=== PATIENT | female | born 1980 | race Caucasian/White ===

== ENCOUNTER 2020-11-09 21:48 | Emergency (ER) | payer OTHER ==
[~2020-11-09] VITALS: Ht 165.1 cm; Wt 102.0 kg
[2020-11-09] MEDS ORDERED: IBUP800T19 PO (22:01)
[2020-11-09] MEDS ORDERED: THYR60TA PO (22:01)
[2020-11-09] MEDS ORDERED: HYDR-2759 PO (22:02)
--- NOTE | 2020-11-09 22:16 | PHYS DOC ---
Past History Past Medical History: Ovarian Cyst Past Medical History Post operative urinary retention General Adult EDM: Chief Complaint: URINARY RETENTION HPI: HPI: "..I am not able to pee.. this happens every time.. I ve had surgery.. I had ovarian cysts removed.. Patient is a40] year old female who presents with urinary retention after surgery at [facility] today. Pt. had laparoscopic removal of an ovarian cyst today by Dr. Barton. Since her surgery she has not been able to urinate. Patient states any time she has had generalized surgery she has urinary retention. In the past she is gone home with Davis. Patient normally follows with with Dr. Oralia ARECHIGA, and Dr.Yoakam boogie. Davis was placed after arrival in the emergency room with over 1000 cc urine output. Patient plan leg bag and will follow up with primary care. Review of Systems: Review of Systems: Constitutional: Denies fever or chills Eyes: Denies change in visual acuity HENT: Denies nasal congestion or sore throat Respiratory: Denies cough or shortness of breath Cardiovascular: Denies chest pain or edema GI: Complaintsa abdominal pain. Denies, nausea, vomiting, bloody stools or diarrhea : Denies dysuria . Complains of urinary retention Musculoskeletal: Denies back pain or joint pain Integument: Denies rash Neurologic: Denies headache, focal weakness or sensory changes Endocrine: Denies polyuria or polydipsia Lymphatic: Denies swollen glands Psychiatric: Denies depression or anxiety Family History: Family History: Noncontributory to presentation Current Medications: Current Meds: See nursing for home meds Allergies: Allergies: Allergies Coded Allergies Type Severity Reaction Last Updated Verified No Known Drug Allergies 11/09/20 No Physical Exam: PE: Constitutional: Moderate acute distress, non-toxic appearance. [] HENT: Normocephalic, atraumatic, bilateral external ears normal, oropharynx moist, no oral exudates, nose normal. [] Eyes: PERRLA, EOMI, conjunctiva normal, no discharge. Glasses Neck: Normal range of motion, no tenderness, supple, no stridor. [] Cardiovascular:Heart rate regular rhythm, no murmur [] Lungs & Thorax: Bilateral breath sounds clear to auscultation [] Abdomen: Bowel sounds decreased soft, no tenderness, no masses, no pulsatile masses. [Suture lines stable. Old surgery scars. Distended bladder. Skin: Warm, dry, no erythema, no rash. [] Back: No tenderness, no CVA tenderness. [] Extremities: No tenderness, no cyanosis, no clubbing, ROM intact, no edema. [] Neurologic: Alert and oriented X 3, normal motor function, normal sensory function, no focal deficits noted. [] Psychologic: Affect anxious, judgement normal, mood normal. [] EKG: EKG: [] Radiology/Procedures: Radiology/Procedures: [] Heart Score: C/O Chest Pain: N/A Risk Factors: Risk Factors: DM, Current or recent (<one month) smoker, HTN, HLP, family history of CAD, obesity. Risk Scores: Score 0 - 3: 2.5% MACE over next 6 weeks - Discharge Home Score 4 - 6: 20.3% MACE over next 6 weeks - Admit for Clinical Observation Score 7 - 10: 72.7% MACE over next 6 weeks - Early Invasive Strategies Course & Med Decision Making: Course & Med Decision Making Pertinent Labs and Imaging studies reviewed. (See chart for details) Davis placed with return of 1000 cc of urine. Patient to leave Davis in for the next 24 hours. Remove after that time and see if urinary function has returned. Patient return if any concerns. Impression: 1. Urinary Retention 2. Hx. ovarian cyst removal-at [facility] today [] Handy Disclaimer: Handy Disclaimer: This electronic medical record was generated, in whole or in part, using a voice recognition dictation system. BAILEE FRAGOSO MD Nov 09, 2020 22:16
[2020-11-09 22:46] LABS: BACTERIA,URINE 0 /HPF (0-FEW); BILIRUBIN,URINE NEG (NEG); CLARITY,URINE CLEAR; COLOR,URINE COLORLESS; GLUCOSE,URINE NEG (NEG); NITRITE,URINE NEG (NEG); RBC,URINE 0 /HPF (0-2); SQUAMOUS EPITHELIAL CELL,UR MOD /LPF; UROBILINOGEN,URINE 0.2 mg/dL (0.2 mg/dL); WBC,URINE 0 /HPF (0-4)
[2020-11-09 23:00] VITALS: BP 120/64
== END 2020-11-09 23:02 | disposition home or self-care (01) ==
LOC: ER 21:48
DX: N99.89 Other postprocedural complications and disorders of genitourinary system (principal)
CPT/HCPCS: 51702; 81001; 99284

== ENCOUNTER → 2021-01-07 | Outpatient (CLI) | payer OTHER ==
[~2021-01-07] MED LIST: HYDR-2759 PO; IBUP800T19 PO; THYR60TA PO
--- NOTE | 2021-01-07 09:48 | RAD ---
INDICATION : Reason: RUQ PAIN / Spl. Instructions: / History: COMPARISON: None TECHNIQUE: Multiple ultrasound images obtained through the abdomen in grayscale and color. FINDINGS: Liver: Echotexture within normal limits in visualized portions of liver. Gallbladder: No wall thickening or stones. There is pain within the right upper quadrant. IVC: Limited visualization secondary to overlying structures obscuring. Common Bile Duct: Not dilated . Pancreas: No gross abnormality identified in visualized portions of pancreas. Right Kidney: No hydronephrosis. Cortical thinning. IMPRESSION: * No biliary ductal dilation or gallstones. There is some pain to transverse or pressure in the rig ht upper quadrant. Electronically signed by: Tj Bernabe MD (01/07/2021 9:46 AM) [id number]
== END ==
LOC: US 08:06
PROVIDERS: ATTEND Nurse Practitioner Family
DX: R10.11 Right upper quadrant pain (principal)
CPT/HCPCS: 76705

== ENCOUNTER → 2021-04-29 | Emergency (ER) | payer OTHER ==
[~2021-04-29] VITALS: Ht 165.1 cm; Wt 102.0 kg
[~2021-04-29] MED LIST changes: +ACETAMINOPHEN 325 MG TABLET PO ONE; +ASPIRIN 325 MG TABLET PO ONE; +IV NORMAL SALINE 1,000ML 1,000 ML IV ONE; +ONDA4TAB12 PO; +ONDANSETRON PF 4 MG/2 ML VIAL. IVP ONE
--- NOTE | 2021-04-29 09:16 | PHYS DOC ---
Past History Past Medical History: Ovarian Cyst Past Surgical History: Other Additional Past Surgical Histo: ovarian cystectomy this am and has had 2 lithotripsies for kidney stones Alcohol Use: None Adult General HPI HPI Patient is a 40-year-old female presenting for numerous complaints. States she started getting symptomatic with upper respiratory type symptoms 9 days ago. Reports she has known COVID-19 exposure, her mother. Patient is not vaccinated against her self and figured she had Covid given similar symptoms in fact that her mother tested positive for Covid. She has been having fever, chills, night sweats, body aches, rhinorrhea with a dry nonproductive cough. She feels dehydrated as she has not had good p.o. intake. Also reports development of painless vaginal bleeding that started late last night. First day last menstrual period was April 06. Started as generalized spotting but reports she has had mild bright red blood without any recent trauma in a patient who is not currently sexually active Review of Systems Review of Systems Fourteen body systems of review of systems have been reviewed. See HPI for pertinent positives and negative responses, other carreon all other systems are negative, non-pertinent or non-contributory Allergies Allergies Allergies Coded Allergies Type Severity Reaction Last Updated Verified No Known Drug Allergies 11/09/20 No Physical Exam Physical Exam Constitutional: Well developed, well nourished, no acute distress, non-toxic appearance. HENT: Normocephalic, atraumatic, bilateral external ears normal, oropharynx moist, no oral exudates, nose normal. Eyes: PERRLA, EOMI, conjunctiva normal, no discharge. Neck: Normal range of motion, no tenderness, supple, no stridor. Cardiovascular: Heart rate regular, sinus rhythm, no murmurs rubs or gallops Lungs & Thorax: Bilateral breath sounds clear to auscultation Abdomen: Bowel sounds normal, soft, no tenderness, no masses, no pulsatile masses. Nonsurgical abdomen, no peritoneal signs Skin: Warm, dry, no erythema, no rash. Back: No tenderness, no CVA tenderness. Extremities: No tenderness, no cyanosis, no clubbing, ROM intact, no edema. Neurologic: Alert and oriented X 3, grossly normal motor & sensory function, no focal deficits noted. Psychologic: Affect normal, judgement normal, mood normal. Current Patient Data Vital Signs Vital Signs Date Time Temp Pulse Resp B/P (MAP) Pulse Ox O2 Delivery O2 Flow Rate FiO2 04/29/21 09:22 100.6 103 16 116/80 95 Room Air Vital Signs Date Time Temp Pulse Resp B/P (MAP) Pulse Ox O2 Delivery O2 Flow Rate FiO2 04/29/21 09:22 100.6 103 16 116/80 95 Room Air Lab Results Current Medications Medications (Trade) Dose Ordered Sig/Hannah Route PRN Reason Start Time Stop Time Status Last Admin Dose Admin Acetaminophen (Tylenol) 650 mg 1X ONCE PO 04/29/21 09:30 04/29/21 09:31 DC 04/29/21 10:09 Sodium Chloride 1,000 ml @ 1,000 mls/hr 1X ONCE IV 04/29/21 09:30 04/29/21 10:29 DC 04/29/21 10:08 Aspirin (Gunnar Aspirin) 325 mg 1X ONCE PO 04/29/21 09:30 04/29/21 10:24 DC Ondansetron HCl (Zofran) 4 mg 1X ONCE IVP 04/29/21 10:30 04/29/21 10:31 DC 04/29/21 11:01 EKG EKG EKG ordered and interpreted by myself at 1013 hrs. as sinus rhythm at 102 bpm, unremarkable intervals, no axis deviation, no acute ischemic findings, no STEMI Radiology/Procedures Radiology/Procedures AP chest. HISTORY: Cough AP view was taken of the chest. Lungs are free of acute infiltrates. Heart is normal in size. There is no pleural effusion. IMPRESSION: 1. No acute infiltrates. Electronically signed by: Adam Luna MD (04/29/2021 10:17 AM) [facility] Heart Score C/O Chest Pain: No HEART Score for Chest Pain: HEART Score for Chest Pain Response (Comments) Value History Slighlty/Non-Suspicious 0 ECG Normal 0 Age < 45 0 Risk Factors No Risk Factors 0 Troponin < Normal Limit 0 Total 0 Risk Factors: Risk Factors: DM, Current or recent (<one month) smoker, HTN, HLP, family history of CAD, obesity. Risk Scores: Risk Factors: DM, Current or recent (<one month) smoker, HTN, HLP, family history of CAD, obesity. Course & Med Decision Making Course & Med Decision Making ABCs unremarkable. I disclosed entirety of ER findings and discussed most likely diagnosis of COVID-19 infection and nonemergent vaginal bleeding. No indication for further diagnostic work-up or aggressive intervention in ER setting. Patient feels better after IV fluid rehydration and IV antiemetic. Joint decision made to discharge home with Zofran prescription and continued supportive care and self quarantine practices given diagnosis of COVID-19. I recommended pelvic exam but patient deferred. Hemoglobin stable, amount of ble eding nonconcerning, patient is a candidate for nonemergent outpatient pelvic ultrasonography whenever safe to do so after current COVID-19 infection. Plan of care discussed at length with need for close outpatient follow-up to review today's ER visit stressed. Strict return precautions were also discussed at length with good understanding by patient. Patient voiced understanding and agreement with the plan. Patient knows to come back for repeat evaluation if concerning signs or symptoms present prior to outpatient follow-up. Hemodynamically stable, ambulatory and well-appearing at time of disposition. Dragon Disclaimer Dragon Disclaimer This electronic medical record was generated, in whole or in part, using a voice recognition dictation system. Departure Departure: Impression: Primary Impression: COVID-19 Additional Impression: Vaginal bleeding Disposition: 01 HOME / SELF CARE / HOMELESS Condition: IMPROVED Referrals: [facility] (PCP) Additional Instructions: You were seen for headache, fever, body aches, and possible infection with COVID-19. Your physical exam was reassuring. Your chest x-ray and remaining ER work-up was normal. In the meantime you need to quarantine yourself at home away from all other individuals, especially those who are elderly or have any other chronic health issues or an immunocompromised status. You should return to the ED if you develop worsening cough, shortness of breath, chest pain, or an y other new or concerning symptoms. Alternate Tylenol and ibuprofen as needed for body aches and pain. You should make sure to drink plenty of fluids and get plenty of rest. In addition, when it is safe to do so you need to follow-up with your primary care physician and/or [employer] to have a nonemergent outpatient pelvic sonogram performed Scripts Ondansetron (ONDANSETRON ODT) 4 Mg Tab.rapdis 1 TAB PO PRN Q6-8HRS for NAUSEA, #16 TAB Prov: LIONEL DALY DO 04/29/21 Problem Qualifiers LIONEL DALY DO Apr 29, 2021 09:16
[2021-04-29 09:22] VITALS: BP 116/80
--- NOTE | 2021-04-29 10:20 | RAD ---
AP chest. HISTORY: Cough AP view was taken of the chest. Lungs are free of acute infiltrates. Heart is normal in size. There i s no pleural effusion. IMPRESSION: 1. No acute infiltrates. Electronically signed by: Adam Luna MD (04/29/2021 10:17 AM) [facility]
--- NOTE | 2021-04-29 10:21 | EKG ---
[address] [address] Test Date: 2021-04-29 Test Time: 09:58:28 Pat Name: ANT KOENIG Department: Room: Gender: F Cd Mixer: ALEJANDRO : 1980 Requested By: LIONEL DALY Order Number: [id number] Reading MD: Measurements Intervals [place] Rate: 102 P: 49 VT: 144 QRS: 18 QRSD: 80 T: 24 QT: 336 QTc: 442 Interpretive Statements SINUS TACHYCARDIA OTHERWISE NORMAL ECG RI6.02 Compared to ECG 04/29/2021 09:51:19 Right bundle-branch block no longer present Myocardial infarct finding no longer present
[2021-04-29 10:30] LABS: BASO % 0 % (0-3); EOS % 0 % (0-3); HEMATOCRIT 41.1 % (36.0-47.0); HEMOGLOBIN 13.5 g/dL (12.0-15.5); LYMPH # 0.5 x10^3/uL (1.0-4.8); LYMPH % 17 % (24-48); MEAN CORPUSCULAR HEMOGLOBIN 29 pg (25-35); MEAN CORPUSCULAR HGB CONC 33 g/dL (31-37); MEAN CORPUSCULAR VOLUME 87 fL (79-100); MONO # 0.2 x10^3/uL (0.0-1.1); MONO % 9 % (0-9); NEUT # 2.2 x10^3uL (1.8-7.7); NEUT % 75 % (31-73); PLATELET COUNT 93 x10^3/uL (140-400); RED BLOOD COUNT 4.72 x10^6/uL (3.50-5.40); WHITE BLOOD COUNT 2.9 x10^3/uL (4.0-11.0)
[2021-04-29 10:36] LABS: CALCIUM 7.9 mg/dL (8.5-10.1); CREATININE 0.8 mg/dL (0.6-1.0); GFR 79.4; POTASSIUM 3.9 mmol/L (3.5-5.1)
[2021-04-29 10:42] LABS: ALBUMIN 3.5 g/dL (3.4-5.0); ALBUMIN/GLOBULIN RATIO 1.2 (1.0-1.7); TOTAL BILIRUBIN 0.2 mg/dL (0.2-1.0); TOTAL PROTEIN 6.5 g/dL (6.4-8.2)
[2021-04-29 11:54] LABS: BACTERIA,URINE 0 /HPF (0-FEW); BILIRUBIN,URINE SMALL (NEG); CLARITY,URINE TURBID; COLOR,URINE AMBER; GLUCOSE,URINE NEG (NEG); NITRITE,URINE NEG (NEG); RBC,URINE TNTC /HPF (0-2); SQUAMOUS EPITHELIAL CELL,UR FEW /LPF
[2021-04-29 11:55] LABS: WBC,URINE OCC /HPF (0-4)
== END | disposition home or self-care (01) ==
LOC: ER 08:37
DX: U07.1 COVID-19 (principal); N93.9 Abnormal uterine and vaginal bleeding, unspecified
CPT/HCPCS: 36415; 71045; 80053; 81001; 81025; 84484; 85025; 87426; 93005; 96361; 96374; 99285; J2405; J7030